=== PATIENT | male | born 1970 | race Caucasian/White ===

== ENCOUNTER → 2019-10-17 | Outpatient (CLI) | payer OTHER ==
[~2019-10-17] VITALS: Ht 182 cm; Wt 106.0 kg
[~2019-10-17] MED LIST: FISH1CAP15 PO; HYDR-34 PO; MULT-593 PO
== END | disposition home or self-care (01) ==
LOC: PREOP 05:38
PROVIDERS: ATTEND Surgery
DX: Z01.818 Encounter for other preprocedural examination (principal)

== ENCOUNTER 2019-10-18 09:25 | Day surgery (SDC) | payer BC, OTHER ==
--- NOTE | 2019-10-17 15:29 | HISTORY AND PHYSICAL ---
DATE OF SERVICE: 10/18/2019 PROCEDURE DATE: 10/18/2019 ATTENDING PHYSICIAN: Dr. Crockett. HISTORY OF PRESENT ILLNESS: The patient is a 49-year-old male who was referred over to us for an umbilical hernia. The patient reports that he has had this for approximately 30 years; however, over the last couple of years that this has become larger in size and started to become more painful at times. He denies any diarrhea or constipation as well as no fever or chills. He denies any other issues. PAST MEDICAL HISTORY: None. PAST SURGICAL HISTORY: None. ALLERGIES: No known drug allergies. MEDICATIONS: None. SOCIAL HISTORY: Negative for smoke, social for alcohol. FAMILY HISTORY: Father had diabetes, myocardial infarction in his 30s, hypertension. Maternal grandfather, colon cancer. VITAL SIGNS: Blood pressure is 134/74. Pulse 69. Current weight is 240.7 pounds at 6 feet 0 inches. REVIEW OF SYSTEMS: Well-nourished male in no acute distress. He is not experiencing any shortness of breath or difficulty breathing. No chest pain, palpitations or diaphoresis. No nausea or vomiting. He does report episodes of abdominal discomfort in the umbilical region. No diarrhea or constipation. No red blood per rectum. No dark tarry stools. No fever or chills. No recent inadvertent weight loss. All other review of systems negative. PHYSICAL EXAMINATION: CHEST: Clear. Good breath sounds bilaterally. HEART: Regular, no murmurs. EXTREMITIES: No lower extremity edema. Negative Homans sign. HEENT: No scleral icterus. NECK: No cervical lymphadenopathy. ABDOMEN: Soft, nondistended. There is bulging with a Valsalva maneuver in the umbilical region; however, this is reducible and there is also a small periumbilical hernia also identified that is reducible and tender to palpation. These are consistent with an umbilical hernia. SKIN: Warm, dry and pink. NEUROLOGIC: Awake, alert, oriented x3. ASSESSMENT AND PLAN: A 49-year-old male with a symptomatic umbilical hernia. At this time, we will recommend proceeding with open umbilical hernia repair with mesh. The risks and benefits of the procedure as well as the procedure and home care structures including the risk of incarceration and strangulation were explained to the patient. The patient verbalized understanding of instructions and agrees to this plan. At this time, we will proceed with scheduling the patient for an open umbilical hernia repair with mesh. Job ID: [id number] DocumentID: [id number] Dictated Date: 10/16/2019 15:45:28 Steamer Blocker Date: 10/16/2019 16:02:16 Dictated By: NATALIA GRAVES APRN
[~2019-10-18] VITALS: Ht 182 cm; Wt 106.0 kg
[2019-10-18] VITALS (10 sets, daily range): BP systolic 99–112; BP diastolic 64–81
[~2019-10-18 09:25] MED LIST changes: -HYDR-34 PO
--- NOTE | 2019-10-18 09:58 | Progress Note-Pre Operative ---
Pre-Operative Progress Note H&P Reviewed The H&P was reviewed, patient examined and no changes noted. Date Seen by Provider: Oct 18, 2019 Time Seen by Provider: 09:50 Date H&P Reviewed: Oct 18, 2019 Time H&P Reviewed: 09:50 Pre-Operative Diagnosis: sx umbilical hernia CLAUDINE ROY MD Oct 18, 2019 09:58
[2019-10-18] MEDS ORDERED: HYDR-34 PO (09:59)
[2019-10-18] MEDS ORDERED: morphine INJ 10 MG/ML 1ML (SYR OR VIAL) IVP PRN ×2 (10:00)
[2019-10-18] MEDS ORDERED: ceFAZolin 2 GM/50 ML NS 50 ML IV ONE (10:00)
[2019-10-18] MEDS ORDERED: ACETAMINOPHEN 325 MG TABLET PO PRN (10:00)
[2019-10-18] MEDS ORDERED: oxyCODONE/APAP 5/325MG (PERCOCET 5) TABLET PO PRN (10:00)
[2019-10-18] MEDS ORDERED: ONDANSETRON 4 MG/2 ML (SDV) Z0FRAN IVP PRN ×2 (10:00→12:45)
--- NOTE | 2019-10-18 10:00 | Discharge Inst-Surgical ---
D/C Lap Instructions-MANUELA New, Converted, or Re-Newed RX: RX on Chart Follow Up Appt in 2 weeks Activity as tolerated No driving for 24 hours No driving while on pain medications Incentive Spirometry use every 2 hours while awake Regular Diet Symptoms to Report: Fever over 101 degree F, Nausea/Vomiting Infection Signs and Symptoms to report: Increased redness, Foul odor of wound, Increased drainage Bathing instructions: May shower Operative Area Clean/Dry; Keep incision clean/dry If any problems/questions: Contact your physician or go to Emergency Room CLAUDINE ROY MD Oct 18, 2019 10:00
[2019-10-18] MEDS: LACTATED RINGERS 1,000 ML IV PRN ×2 (10:05→12:38)
[2019-10-18] MEDS ORDERED: CATHETER FLUSH 10 ML SYR IV PRN (10:15)
[2019-10-18] MEDS ORDERED: BUP/EPI 0.5% 1:200,000 (SENSORCAINE) 30 ML VIAL ONE (10:44)
[2019-10-18] MEDS ORDERED: LIDOCAINE PF 2% 5 ML (XYLOCAINE) VIAL ONE (10:52)
[2019-10-18] MEDS ORDERED: ONDANSETRON 4 MG/2 ML (SDV) Z0FRAN ONE (10:52)
[2019-10-18] MEDS ORDERED: NEOSTIGMINE 3 MG/3 ML VIAL ONE (10:52)
[2019-10-18] MEDS ORDERED: ROCURONIUM 10 MG/ML 5 ML SYRINGE IV ONE (10:52)
[2019-10-18] MEDS ORDERED: SEVOFLURANE (ULTANE) 15 ML INHAL SOLN ONE ×3 (10:52→12:40)
[2019-10-18] MEDS ORDERED: proPOfol 200 MG/20 ML (DIPRIVAN) VIAL IV ONE (10:52)
[2019-10-18] MEDS ORDERED: MIDAZOLAM 2 MG/2 ML (VERSED) VIAL ONE (10:52)
[2019-10-18] MEDS ORDERED: fentaNYL INJECTION 100 MCG/2 ML AMP ONE (10:52)
[2019-10-18] MEDS ORDERED: DEXAMETHASONE 10 MG/ML (DECADRON) 1 ML VIAL ONE (10:52)
[2019-10-18] MEDS ORDERED: GLYCOPYRROLATE 0.2 MG/ML (ROBINUL) 2 ML VIAL ONE ×2 (10:52→12:25)
--- NOTE | 2019-10-18 12:37 | Progress Note-Post Operative ---
Post-Operative Progess Note Surgeon (s)/Cellophaner (s) Surgeon CLAUDINE ROY MD Cellophaner: none Pre-Operative Diagnosis sx umbilical hernia Post-Operative Diagnosis same Procedure & Operative Findings Date of Procedure 10/18/19 Procedure Performed/Findings open umbilical hernia repair with mesh. Anesthesia Type get Estimated Blood Loss Estimated blood loss (mL): minimal Specimens/Packing Specimens Removed hernia sac CLAUDINE ROY MD Oct 18, 2019 12:37
[2019-10-18] MEDS ORDERED: HYDROmorphone 2 MG/ML VIAL (DILAUDID) IV ONE (12:45)
[2019-10-18] MEDS ORDERED: morphine INJ 10 MG/ML 1ML (SYR OR VIAL) IVP ONE (12:45)
--- NOTE | 2019-10-18 13:18 | Anesthesia-General Post-Op ---
General Patient Condition Mental Status/LOC: Same as Preop Cardiovascular: Satisfactory Nausea/Vomiting: Absent Respiratory: Satisfactory Pain: Controlled Complications: Absent Post Op Complications Complications None Follow Up Care/Instructions Patient Instructions None needed. Anesthesia/Patient Condition Patient Condition Patient is doing well, no complaints, stable vital signs, no apparent adverse anesthesia problems. CAMRON GIANG DO Oct 18, 2019 13:18
--- NOTE | 2019-10-18 18:56 | OPERATIVE REPORT ---
DATE OF SERVICE: 10/18/2019 ATTENDING PRIMARY CARE PHYSICIAN: Monae Crockett DO PREOPERATIVE DIAGNOSIS: Symptomatic reducible umbilical hernia. POSTOPERATIVE DIAGNOSIS: Symptomatic reducible umbilical hernia. PROCEDURE: Open umbilical hernia repair with mesh. SURGEON: Tin Roy MD DRYING MACHINE BACK TENDER: Steve Mckeon APRN. ANESTHESIA: General endotracheal. ESTIMATED BLOOD LOSS: Minimal. FINDINGS: Greater omentum within the hernia sac. DISPOSITION: The patient tolerated the procedure well. INDICATIONS: The patient is a 49-year-old male referred over to us for painful bulge in the umbilical region. He reports that this has been around for greater than 30 years and was initially asymptomatic; however, it has grown significantly larger in size overtime and become painful. Upon examination, he was found to have an umbilical hernia, which was reducible; however, tender to palpation. He is otherwise doing well and tolerating regular diet and having normal bowel movements. DESCRIPTION OF PROCEDURE: The patient was brought to the operating room, laid supine on the table. After adequate IV pain and sedative medications and general endotracheal intubation, the abdomen was prepped and draped in standard surgical fashion. A 0.5% Marcaine with epinephrine was used to anesthetize the supraumbilical rim. A crescent-shaped skin incision was then made using a 15 blade. Subcutaneous tissue was then dissected down using electrocautery. The hernia sac was then identified and then dissected out using blunt dissection as well as Metzenbaum scissors and electrocautery. Hernia sac was then opened using Metzenbaum scissors and then completely excised under direct visualization using electrocautery. There was only greater omentum within the hernia sac. The defect was approximately 2.5 cm in size and an 8 cm coated polypropylene mesh was then placed into the defect and transfascially sutured to the fascia using interrupted 0 Prolene sutures. Good hemostasis was observed. The base of the umbilicus was then sutured to the mesh using 3-0 Vicryl interrupted suture. Subcutaneous tissue was then reapproximated using 3-0 Vicryl interrupted suture and the skin was closed using 4-0 Monocryl running subcuticular suture. Wound was then cleaned and covered with Dermabond. The umbilicus was then filled with tonsil sponges followed by 4 x 4 gauze followed by large Op-Site and abdominal binder. The patient tolerated the procedure well. He will be instructed to keep the pressure dressing on for the next 5 days and then removed. He is also instructed to keep his abdominal binder on for the next two weeks. We will also have him avoid heavy lifting or exertion for the next two weeks and slowly increase more activity in a gradual stepwise fashion until he is six weeks from the surgery date. Job ID: [id number] DocumentID: [id number] Dictated Date: 10/18/2019 12:36:47 Machine Etcher Date: 10/18/2019 18:55:34 Dictated By: TIN ROY MD
== END 2019-10-18 15:13 | disposition home or self-care (01) ==
LOC: SDC 09:25
PROVIDERS: ATTEND Surgery
DX: K42.9 Umbilical hernia without obstruction or gangrene (principal); E66.9 Obesity, unspecified; Z68.32 Body mass index [BMI] 32.0-32.9, adult; Z83.3 Family history of diabetes mellitus; Z82.49 Family history of ischemic heart disease and other diseases of the circulatory system; Z80.0 Family history of malignant neoplasm of digestive organs
CPT/HCPCS: 87081

== ENCOUNTER 2022-04-04 19:40 | Emergency (ER) | payer BC ==
[~2022-04-04 19:40] MED LIST changes: +HYDR-34 PO
--- NOTE | 2022-04-04 19:56 | ED General ---
General Stated Complaint: RECTAL ABCESS Source of Information: Patient History of Present Illness Date Seen by Provider: Apr 04, 2022 Time Seen by Provider: 19:52 Initial Comments PT ARRIVES VIA POV FROM HOME C/O ABSCESS ADJACENT TO RECTUM ON RIGHT BUTTOCK AREA HAS BEEN THERE FOR A COUPLE OF DAYS, BUT IS LARGER AND MORE PAINFUL TODAY NO HISTORY OF SIMILAR HAS NOT HAD A BM TODAY OR YESTERDAY NO RECTAL BLEEDING NO URINARY SYMPTOMS NO FEVER PT IS NOT DIABETIC, AND DOES NOT HAVE ANY MEDICAL PROBLEMS PCP: DR. COHEN Allergies and Home Medications Allergies Coded Allergies: No Known Drug Allergies (Unverified , 10/17/19) Patient Home Medication List Fish Oil/Dha/Epa (Fish Oil 1,200 mg Fish Oil) 1 Each Capsule, 1 EACH PO DAILY, (Reported) Entered as Reported by: MADDISON HOLDEN on 10/17/19 1150 Hydrocodone Bit/Acetaminophen (Lortab 7.5 Mg Tablet) 1 Ea Tablet, 1 EACH PO Q4H PRN for PAIN-MODERATE Prescribed by: CLAUDINE ROY on 10/18/19 0959 Multivitamin with Minerals (Multiple Vitamin) 1 Each Tablet, 1 EACH PO DAILY, (Reported) Entered as Reported by: MADDISON HOLDEN on 10/17/19 1150 Review of Systems Review of Systems Constitutional: no symptoms reported Gastrointestinal: see HPI Genitourinary: no symptoms reported Skin: see HPI Past [id number] Hx Patient Social History Tobacco Use?: No Substance use?: No Alcohol Use?: Yes Alcohol Frequency: Couple times a week Seasonal Allergies Seasonal Allergies: No Past Medical History Surgeries: Yes (HERNIA REPAIR) Abdominal Respiratory: No Currently Using CPAP: No Currently Using BIPAP: No Cardiac: No Neurological: No Sexually Transmitted Disease: No HIV/AIDS: No Genitourinary: No Gastrointestinal: Yes (UMBILICAL HERNIA) Abdominal Hernia Musculoskeletal: Yes Chronic Back Pain Endocrine: No HEENT: Yes (GLASSES) Loss of Vision: Denies Hearing Impairment: Denies Cancer: No Psychosocial: No Integumentary: No Blood Disorders: No Adverse Reaction/Blood Tranf: No (N/A) Physical Exam Vital Signs Capillary Refill : Height, Weight, BMI Height: '" Weight: lbs. oz. kg; 32.00 BMI Method: General Appearance: No Apparent Distress, WD/WN Respiratory: Normal Breath Sounds Cardiovascular: Regular Rate, Rhythm Gastrointestinal: Non Tender, Soft Neurologic/Psychiatric: Alert, Oriented x3 Skin: Normal Color, Warm/Dry, Other (PT WITH EXTENSIVE TINEA RASH TO BUTTOCKS, THIGHS, GENITAL AREA AND GROIN AREAS BILATERALLY, WITH DISRETE RAISED ERTYEMATAOUS BORDERS AND CENTRAL SCALING AND MILD DIFFUSE INFLAMMATION CENTRALLY. RIGHT PERIRECTAL AREA WITH LARGE AREA--APPROXIMATELY 10 CM--OF SWELLING, ERYTHEMA, TENDERNESS, AND INDURATION. NO FLUCTUANCE, NO DRAINAGE. NO POINTING.) Progress/Results/Core Measures Suspected Sepsis SIRS Temperature: Pulse: Respiratory Rate: Laboratory Tests 04/04/22 20:02: White Blood Count 12.4H Blood Pressure / Mean: Laboratory Tests 04/04/22 20:02: Creatinine 1.03, Platelet Count 250, Total Bilirubin 0.4 Results/Orders Lab Results Laboratory Tests Test 04/04/22 20:02 Range/Units White Blood Count 12.4 H 4.3-11.0 10^3/uL Red Blood Count 4.58 4.30-5.52 10^6/uL Hemoglobin 14.4 13.3-17.7 g/dL Hematocrit 42 40-54 % Mean Corpuscular Volume 92 80-99 fL Mean Corpuscular Hemoglobin 31 25-34 pg Mean Corpuscular Hemoglobin Concent 34 32-36 g/dL Red Cell Distribution Width 13.2 10.0-14.5 % Platelet Count 250 130-400 10^3/uL Mean Platelet Volume 9.2 9.0-12.2 fL Immature Granulocyte % (Auto) 0 % Neutrophils (%) (Auto) 75 42-75 % Lymphocytes (%) (Auto) 14 12-44 % Monocytes (%) (Auto) 9 0-12 % Eosinophils (%) (Auto) 2 0-10 % Basophils (%) (Auto) 0 0-10 % Neutrophils # (Auto) 9.2 H 1.8-7.8 10^3/uL Lymphocytes # (Auto) 1.8 1.0-4.0 10^3/uL Monocytes # (Auto) 1.1 H 0.0-1.0 10^3/uL Eosinophils # (Auto) 0.2 0.0-0.3 10^3/uL Basophils # (Auto) 0.1 0.0-0.1 10^3/uL Immature Granulocyte # (Auto) 0.1 0.0-0.1 10^3/uL Sodium Level 140 135-145 MMOL/L Potassium Level 3.6 3.6-5.0 MMOL/L Chloride Level 104 98-107 MMOL/L Carbon Dioxide Level 21 21-32 MMOL/L Anion Gap 15 H 5-14 MMOL/L Blood Urea Nitrogen 13 7-18 MG/DL Creatinine 1.03 0.60-1.30 MG/DL Estimat Glomerular Filtration Rate 88 BUN/Creatinine Ratio 13 Glucose Level 128 H 70-105 MG/DL Calcium Level 9.4 8.5-10.1 MG/DL Corrected Calcium 9.3 8.5-10.1 MG/DL Total Bilirubin 0.4 0.1-1.0 MG/DL Aspartate Amino Transf (AST/SGOT) 16 5-34 U/L Alanine Aminotransferase (ALT/SGPT) 23 0-55 U/L Alkaline Phosphatase 86 40-136 U/L Total Protein 7.5 6.4-8.2 GM/DL Albumin 4.1 3.2-4.5 GM/DL My Orders Orders - ASHLEY LR DO Ed Iv/Invasive Line Start (04/04/22 20:03) Cbc With Automated Diff (04/04/22 20:03) Comprehensive Metabolic Panel (04/04/22 20:03) Ed Iv/Invasive Line Start (04/04/22 20:03) Clindamycin 900 Mg/50 Ml Ivpb (Cleocin P (04/04/22 20:15) Ct Pelvis W (04/04/22 20:03) Ketorolac Injection (Toradol Injection) (04/04/22 20:03) Iohexol Injection (Omnipaque 350 Mg/Ml 1 (04/04/22 20:30) Received Contrast (Hold Metformin- Contr (04/04/22 20:30) Ns (Ivpb) (Sodium Chloride 0.9% Ivpb Bag (04/04/22 20:30) Medications Given in ED Current Medications Medications Dose Ordered Sig/Raghu Route Start Time Stop Time Status Last Admin Dose Admin Clindamycin Phosphate/Dextrose 50 ml @ 100 mls/hr ONCE ONCE IV 04/04/22 20:15 04/04/22 20:44 DC 04/04/22 20:55 100 MLS/HR Iohexol 100 ml ONCE ONCE IV 04/04/22 20:30 04/04/22 20:31 DC 04/04/22 20:59 100 ML Sodium Chloride 100 ml ONCE ONCE IV 04/04/22 20:30 04/04/22 20:31 DC 04/04/22 20:59 80 ML Vital Signs/I&O Capillary Refill : Progress Note : Progress Note DISCUSSED THE TINEA-TYPE RASH --HE STATES IT HAS BEEN THERE A LONG TIME, AND IT ITCHES WHEN HE GETS HOT AND SWEATY--"JUST THOUGHT IT WAS A HEAT RASH" Departure Impression Primary Impression: Perirectal cellulitis Additional Impression: Tinea cruris Disposition: HOME, SELF-CARE Condition: Stable Departure-Patient Inst. Decision time for Depature: 21:40 Referrals: IMELDA COHEN DO (PCP) Primary Care Physician ASHLEY LR DO (Family) Primary Care Physician CLAUDINE ROY MD Patient Instructions: Fungal Skin Rash ED, Cellulitis (Skin Infection), Adult (DC) Add. Discharge Instructions: DONUT CUSHION NEEDED FOR COMFORT ALTERNATE ICE AND HEAT TO AREA AT 20 MINUTE INTERVALS FOLLOW UP WITH DR. ROY IN 2-3 DAYS FOR FURTHER CARE--CALL IN THE MORNING TO SCHEDULE APPOINTMENT Scripts Naproxen (Naproxen) 500 Mg Tablet. 500 MG PO BID, #20 TAB Prov: ASHLEY LR DO 04/04/22 Hydrocodone/Acetaminophen (Hydrocodone-Acetamin 5-325 mg) 5 Mg-325 Mg Tablet 1 EACH PO Q4-6 HOURS PRN for PAIN, #20 TAB Prov: ASHLEY LR DO 04/04/22 [Lamisil At] No Conflict Check TOP BID for 30 Days, #1 EA 3 Refills Prov: ASHLEY LR DO 04/04/22 Ketoconazole (Ketoconazole) 200 Mg Tablet 200 MG PO DAILY, #30 TAB Prov: ASHLEY LR DO 04/04/22 Clindamycin HCl (Clindamycin HCl) 300 Mg Capsule 300 MG PO QID for 10 Days, #40 CAP Prov: ASHLEY LR DO 04/04/22 ASHLEY LR DO Apr 04, 2022 19:56
[2022-04-04] MEDS ORDERED: KETOROLAC 30 MG/ML VIAL IVP STA (20:03)
[2022-04-04] MEDS ORDERED: CLINDAMYCIN 900 MG/50 ML IVPB 50 ML IV ONE (20:15)
[2022-04-04 20:28] LABS: BASOPHILS # (AUTO) 0.1 10^3/uL (0.0-0.1); BASOPHILS % (AUTO) 0 % (0-10); EOSINOPHILS # (AUTO) 0.2 10^3/uL (0.0-0.3); EOSINOPHILS % (AUTO) 2 % (0-10); HEMATOCRIT 42 % (40-54); HEMOGLOBIN 14.4 g/dL (13.3-17.7); LYMPHOCYTES # (AUTO) 1.8 10^3/uL (1.0-4.0); LYMPHOCYTES % (AUTO) 14 % (12-44); MEAN CORPUSCULAR HEMOGLOBIN 31 pg (25-34); MEAN CORPUSCULAR HGB CONC 34 g/dL (32-36); MEAN CORPUSCULAR VOLUME 92 fL (80-99); MEAN PLATELET VOLUME 9.2 fL (9.0-12.2); MONOCYTES # (AUTO) 1.1 10^3/uL (0.0-1.0); MONOCYTES % (AUTO) 9 % (0-12); NEUTROPHILS # (AUTO) 9.2 10^3/uL (1.8-7.8); NEUTROPHILS % (AUTO) 75 % (42-75); PLATELET COUNT 250 10^3/uL (130-400); WHITE BLOOD COUNT 12.4 10^3/uL (4.3-11.0)
[2022-04-04] MEDS ORDERED: NS 100 ML (IVPB) BAG IV ONE (20:30)
[2022-04-04] MEDS ORDERED: HOLD METFORMIN - RECEIVED CONTRAST 20 ML VIAL IV SCH (20:30)
[2022-04-04] MEDS ORDERED: IOHEXOL 350 MG/ML 100 ML (OMNIPAQUE 350) VIAL IV ONE (20:30)
[2022-04-04 20:50] LABS: ALBUMIN 4.1 GM/DL (3.2-4.5); BILIRUBIN,TOTAL 0.4 MG/DL (0.1-1.0); CALCIUM 9.4 MG/DL (8.5-10.1); CREATININE SERUM 1.03 MG/DL (0.60-1.30); POTASSIUM 3.6 MMOL/L (3.6-5.0); TOTAL PROTEIN 7.5 GM/DL (6.4-8.2)
--- NOTE | 2022-04-04 21:28 | Diagnostic Imaging Report ---
PROCEDURE: CT pelvis with contrast. TECHNIQUE: Oral and intravenous contrast were administered with pelvic CT performed. Auto Exposure Controls were utilized during the CT exam to meet ALARA standards for radiation dose reduction. INDICATION: Perirectal abscess. COMPARISON: None. FINDINGS: Evaluation of the soft tissue structures of the pelvis show asymmetric stranding of the subcutaneous fat of the medial right buttock. There does appear to be some associated skin thickening. No focal fluid collection, however, is seen to suggest abscess. Evaluation of the intraperitoneal soft tissue structures also demonstrates no additional fluid collection. There is no free fluid or free air. Normal appendix is identified. Included small bowel loops are nondistended. Urinary bladder is unopacified. No calculi are seen within the urinary bladder. Osseous structures show no acute abnormalities. Bilateral nonacute L5 pars defects are noted. IMPRESSION: Asymmetric stranding of the subcutaneous fat of the medial right buttock, but no evidence of abscess. Dictated by: Dictated on workstation # [id number]
[2022-04-04] MEDS ORDERED: KETO200T12 PO (21:45)
[2022-04-04] MEDS ORDERED: CLIN-144 PO (21:45)
[2022-04-04] MEDS ORDERED: LAMISIL AT TOP (21:45)
[2022-04-04] MEDS ORDERED: NAPR500T8 PO (21:46)
[2022-04-04] MEDS ORDERED: ACHD5005 PO (21:46)
[2022-04-04 21:55] VITALS: BP 131/91
== END 2022-04-04 22:01 | disposition home or self-care (01) ==
LOC: EDUNIT# 19:40 → ER 19:42
DX: K61.1 Rectal abscess (principal); B35.6 Tinea cruris
CPT/HCPCS: 36415; 72193; 80053; 85025